=== PATIENT | female | born 1985 | race Asian ===

== ENCOUNTER 2016-12-22 18:43 | Emergency (ER) | payer OTHER ==
[~2016-12-22] VITALS: Ht 157.5 cm; Wt 54.5 kg
[2016-12-22 18:46] VITALS: BP 111/76; PULSE 101; RESP 16; O2SAT 100
--- NOTE | 2016-12-22 18:52 | ED.REPORT ---
HPI- Female Date of Service Dec 22, 2016 ED Provider: Dr. Brad Glasgow M.D. A 31 year old female at 7-8 weeks with a history of thyroid disease presents to the ED with vaginal bleeding onset last night, worsening one hour prior to arrival. The patient only noticed a small pink spot on her toilet paper initially but did see red blood today. She also reports lower abdominal cramping. The patient denies extremity swelling, rash, or other symptoms. She has her first [facility] appointment scheduled for next week. Her last normal menstrual period was 10/29/16. Nursing Notes Stated Complaint: BLEEDING 6WKS Chief Complaint: & Delivery Nursing Notes Reviewed: Yes ([facility], [facility] [place] not reconciled) Allergies: Coded Allergies: amoxicillin (Verified Allergy, Intermediate, rash, 12/22/16) General Time Seen by MD: 18:51 Chief Complaint Vaginal bleeding... Hx Obtained From: Patient Arrived By: Walk-in Sudden in Onset?: Yes Onset Occurred: Yesterday (Last night, worsening one hour prior to arrival) Context of Onset: , 1st trimester Symptom Duration: Since onset Location: : Abdomen lower Quality: Cramping, Painful Severity: Current: Moderate Severity: Maximum: Moderate Associated with: Reports: Abdominal pain Status: Positive - ED urine HCG : 2 RH Status / Blood Type: Rh Positive Pertinent Negative: Relieved by nothing Recent Healthcare: No recent doctor visit Similar Sx Previous: Yes Past Medical History Past Medical History Notes: Occasion: Levothyroxine Past Medical History - currently estimated ~7wk preg (12/22/16) Hypothyroid Reports: Thyroid disease Past Surgical History Hemorrhoid removal Smoking History Never Smoker Social History Other Social History: Good social support Ambulatory Status Independent Review of Systems Constitutional: Denies: Fever GI: Reports: Abdominal pain (Lower, cramping), Denies: Diarrhea, Vomiting Female: Reports: Vaginal bleeding - abnl (During ) Musculoskeletal: Denies: Extremity swelling Skin: Denies Rash Complete sys rev & neg: except as marked. Respiratory: Denies: Non-productive cough, Shortness of breath Physical Exam Initial Vital Signs Vital Signs (First) Date Time Temp Pulse Resp B/P Pulse Ox O2 Delivery O2 Flow Rate FiO2 12/22/16 18:46 36.4 101 16 111/76 100 Room Air Initial VS: Reviewed, Vital signs abnormal (HR 101) Head / Eyes: Atraumatic, Normocephalic ENT: Conjunctiva normal, No scleral icterus Neck: Supple, Full range of motion Respiratory: Breath sounds normal, Clear to auscultation, No respiratory distress Cardiovascular: Regular rate & rhythm, Heart sounds normal Abdomen / GI: Soft, Non-tender Skin: Warm, Dry, No cyanosis Neurologic: Alert, Oriented, Nonfocal Psychiatric: Mood/affect normal, Behavior normal, Normal thought content General/Constitutional: Awake, Alert Interpretation & Diagnostics URINE : Positive URINE DIPSTICK: 1.015 sp gravity 6 pH + Leukocyte Esterase Trace Protein Normal Glucose Normal Urobilinogen Trace Occult Blood Otherwise Negative Lab Results Interpretation Result Diagram: 12/22/16 1906 12/22/16 1906 Test 12/22/16 19:06 12/22/16 20:02 White Blood Count 5.9th/mm3 (3.8-10.1) Red Blood Count 3.69mil/mm3 (3.90-5.20) Hemoglobin 11.7g/dL (12.0-15.6) Hematocrit 34.6% (35.0-46.0) Mean Corpuscular Volume 93.8fL (81-100) Mean Corpuscular Hemoglobin 31.7pg (27.0-35.0) Mean Corpuscular Hemoglobin Concent 33.8% (32.0-37.0) Red Cell Distribution Width 12.0% (12.3-15.4) Platelet Count 328bil/L (150-400) Sodium Level 137mEq/L (134-144) Potassium Level 3.8mEq/L (3.5-5.2) Chloride Level 103mEq/L (97-108) Carbon Dioxide Level 19mmol/L (18-29) Blood Urea Nitrogen 14mg/dL (6-20) Creatinine 0.72mg/dL (0.57-1.00) Estimat Glomerular Filtration Rate 135mL/min (>59) Glucose Level 150mg/dL (60-99) Calcium Level 8.9mg/dL (8.5-10.1) Total Bilirubin 0.2mg/dL (0.0-1.2) Aspartate Amino Transf (AST/SGOT) 15U/L (0-50) Alanine Aminotransferase (ALT/SGPT) 9U/L (0-32) Alkaline Phosphatase 39U/L (25-150) Total Protein 7.3g/dL (6.4-8.4) Albumin 4.6g/dL (3.4-5.0) HCG Beta Subunit 3611mIU/mL Hold Mcbride Top Tube Received (Received) Urine Color Yellow (YELLOW) Urine Appearance Clear (CLEAR,HAZY) Urine pH 5.5 (5.0-8.0) Urine Specific Mcintyre <1.005 (1.003-1.035) Urine Protein Negativemg/dL (NEG,TRACE) Urine Glucose (UA) Negativemg/dL (NEGATIVE) Urine Ketones Negativemg/dL (NEGATIVE) Urine Occult Blood Trace (NEGATIVE) Urine Nitrite Negative (NEGATIVE) Urine Bilirubin Negative (NEGATIVE) Urine Urobilinogen Normalmg/dL (NORMAL) Urine Leukocyte Esterase Small (NEGATIVE) Urine RBC 0-2/hpf (0-2) Urine WBC 0-5/hpf (0-5) Urine Epithelial Cells Few/hpf (NONE-MOD) Urine Crystals None seen (NONE SEEN) Urine Bacteria None/hpf (NONE-FEW) Urine Hyaline Casts None/lpf (NONE) Urine Granular Casts None seen (NONE SEEN) Urine Waxy Casts None seen (NONE SEEN) Urine Red Blood Cell Casts None seen (NONE SEEN) Urine White Blood Cell Casts None seen (NONE SEEN) Urine Mucus None seen (None Seen) Urine Trichomonas None seen (NONE SEEN) Urine Yeast None (NONE SEEN) Urinalysis Comment None Urine Culture Reflexed Indicated Lab Results Interpretation: CBC normal + CMP normal Rh+ Quantitative hCG 3611 Urine dip + leuks US Focused OB US OB<14 WKS+OB TRANSVAG: IMPRESSION: 1. Possible early with mean gestational sac diameter of 0.6 cm corresponding to ultrasound estimated gestational age of 5 weeks 2 days. 2. Possible gestational sac is in the far left uterus in the expected region of the interstitium and early interstitial ectopic cannot be excluded. 3. Recommend correlation with serial beta hCG, followup obstetrical ultrasound and close clinical observation. Dictated by: Nia Martell MD, PhD on 12/22/2016 at 20:32 Exam Performed by: Allied health pract Exam Interpreted by: Radiologist Re-Eval/Medical Decision Med Decision/Clinical Course This is a 31-year-old female who presents leaning some pelvic cramping and vaginal spotting. She has a previous history of miscarriage at 11 weeks, and estimates about 7 weeks currently by LP-with her first OB visit with her provider in [place] scheduled for next Sunday. She is hemodynamically normal. Sports trace cramping, and spotting, but has no peritoneal signs. Blood work was normal. She is Rh+, hematocrit is normal, quantitative hCG is 3610 above the discriminatory zone. Ultrasound suggests a possible early intrauterine , but the location is the is such that an early interstitial ectopic cannot be excluded. Additionally, only the gestational sac is visible, so formal declaration of a cannot yet occur. There are no findings of an inevitable miscarriage. There are no signs of hemoperitoneum. This point the patient presents and has at least a threatened miscarriage, with the possibility of an interstitial ectopic not able to be excluded at this time. Close follow-up and recheck is indicated. The patient advised me to call her OB on Sunday, to advance appointment. A copy of her laboratory studies and images is being provided to the patient to bring in with her. Patient has a borderline abnormal urine and in the setting of low threshold is being employed, the patient's been covered with nitrofurantoin. Routine discharge instructions and precautions reviewed. Source of Hx: Old records Re-Evaluation/Progress : Time of Eval: 21:16 Patient Status: Condition improved Re-Evaluation/Progress Note: Patient rechecked. Discussed US results in depth. Also discussed with patient lab results, diagnosis, and plan for discharge. Follow-up and return to the ER instructions given. Patient agrees with plan for care and all questions were addressed. Differential Diagnosis: Positive: , threatened, Vaginal bleeding, Negative: Ectopic preg, ruptured, Intrauterine Counseled Regarding: Diagnosis, Lab results, Need for follow-up, When/why to return to ED Discharge & Departure Departure Notes NOTE: Early interstitial ectopic cannot yet be excluded Impression: Primary Impression: Threatened miscarriage in early Additional Impression: UTI (urinary tract infection) Disposition: Home Discharge Condition All VS Reviewed: Yes Condition: Improved Additional Instructions: 1. Your "HCG" today is 3610 2. Your ultrasound reveals a gestational sac suggesting a 5 week 2 day . 3. The sac is located near the exit of the fallopian tube, and at this point an early interstitial ectopic cannot be excluded. 4. The next step is time and a recheck. 5. On Sunday, call Dr. Flores's office and tell them you had to come in the ED and that you need to be seen earlier than Sunday for a recheck. Please bring a copy of the ultrasound and your labs with you. 6. Rest. No heavy lifting or exertion. No intercourse. 7. You may have an early urinary tract infection, so take the antibiotic nitrofurantoin 100mg twice a day for 7 days. 8. Return to the ED if new or worsening symptoms: increasing pain or heavy bleeding. 9. You can take tylenol 1000mg three times a day for pain or cramping as needed. Referrals: Mary Flores MD Attestation Portions of this note were transcribed by Juliana Dean. I, Dr. Glasgow, personally performed the history, physical exam, and medical decision-making; I reviewed and confirmed the accuracy of the information in the transcribed note. Signed by: Mel Henson, 12/22/2016, 21:55 copies to: Mary Flores MD, Matthew F MD Dec 22, 2016 18:52 JULIANA DEAN Dec 22, 2016 19:04
[2016-12-22 19:19] LABS: Mean Corpuscular Hemoglobin 31.7 pg (27.0-35.0); Mean Corpuscular Volume 93.8 fL (81-100)
[2016-12-22 20:37] LABS: APPEARANCE,URINE CLEAR (CLEAR,HAZY); COLOR,URINE YELLOW (YELLOW); OCCULT BLOOD,URINE TRACE (NEGATIVE); PH,URINE 5.5 (5.0-8.0); UROBILINOGEN,URINE NORMAL (NORMAL)
--- NOTE | 2016-12-22 20:38 | DRSVH ---
PROCEDURE: US OB<14 WKS+OB TRANSVAG INDICATIONS: 7wk , bleeding OUTSIDE/PRIOR DATING DATA: Last menstrual period (LMP): Not known. LMP-based estimated date of delivery (SHAYLA): Not applicable. First dating scan (date and location): 12/22/16. Estimated date of delivery (SHAYLA) from first dating scan: 08/22/2017. TECHNIQUE: Real-time scanning was performed of the fetus and maternal pelvic organs, with image documentation. Endovaginal scanning was also performed to better visualize the fetus and maternal ovaries. COMPARISON: None. FINDINGS: Embryo: Rounded anechoic focus is noted within the far left uterus proximally 9 mm in the edge of th e uterus in the rectum and region of the interstitium. If the finding represents gestational sac the n mean gestational sac diameter of 6 cm would correspond to ultrasound estimated age of 5 weeks 2 day s. Finding may represent early intrauterine versus pseudo-gestational sac. Measurement variability in dating: +/- 4 weeks by LMP, +/- 7 days by mean sac diameter (use before 6 weeks gestation if crown-rump length not able to be measured), +/- 5 days by crown-rump length (6-12 weeks gestation). Maternal organs: There is a 1.8 x 2.1 x 1.9 cm isoechoic lesion in the left adnexa may represent hem orrhagic corpus luteal cyst. Right adnexa sonographically normal. Limited images through the kidney s demonstrate no hydronephrosis. IMPRESSION: 1. Possible early with mean gestational sac diameter of 0.6 cm corresponding to ultrasound estimated gestational age of 5 weeks 2 days. 2. Possible gestational sac is in the far left uterus in the expected region of the interstitium and early interstitial ectopic cannot be excluded. 3. Recommend correlation with serial beta hCG, followup obstetrical ultrasound and close clinical ob servation. Dictated by: Nia Martell MD, PhD on 12/22/2016 at 20:32 Approved by: Nia Martell MD, PhD on 12/22/2016 at 20:37
[2016-12-22] MEDS ORDERED: _Nitrofurantoin Macrocrystal 100 mg Capsule PO SCH (21:40)
[2016-12-22 21:58] VITALS: BP 116/78; PULSE 92; RESP 16; O2SAT 100
== END 2016-12-22 22:07 | disposition home or self-care (01) ==
LOC: SED 18:43
DX: O20.0 Threatened abortion (principal); O23.41 Unspecified infection of urinary tract in pregnancy, first trimester; E03.9 Hypothyroidism, unspecified; Z3A.01 Less than 8 weeks gestation of pregnancy; Z88.1 Allergy status to other antibiotic agents